=== PATIENT | male | born 2000 | race Two or more races ===

== ENCOUNTER 2025-02-01 17:30 | Emergency (ER) | payer BC, MEDICAID, SELFPAY ==
[2025-02-01 18:26] VITALS: BP 133/75; PULSE 52; RESP 18; TEMP 36.8; O2SAT 99; BMI 28.8
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
[2025-02-01] MEDS: LIDOCAINE HCL 1% 20 ML VIAL INFL (19:25)
--- NOTE | 2025-02-01 20:45 | XR_ITS ---
Examination: Hand, left 2 views Technique: AP lateral left hand 2 views Date and time: February 01, 2025, 2043 hours INDICATIONS: Injury to the hand today, hand pain. FINDINGS: 1 mm chip fracture off the volar base of the distal phalanx fifth digit Fracture line also through the base of the distal phalanx fifth digit No dislocation IMPRESSION: Fractures of base distal phalanx fifth digit
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
[2025-02-01] MEDS: BACITRACIN OINT 1 GM PACKET TOP (21:28)
[2025-02-01] MEDS: IBUPROFEN TAB 600 MG TABLET PO (21:29)
== END 2025-02-01 21:42 | disposition home or self-care (01) ==
PROVIDERS: Emergency Provider Emergency Medicine
DX: S62.639A Displaced fracture of distal phalanx of unspecified finger, initial encounter for closed fracture (principal); S01.112A Laceration without foreign body of left eyelid and periocular area, initial encounter; W05.1XXA Fall from non-moving nonmotorized scooter, initial encounter
CPT/HCPCS: 12014; 70450; 73120; 99283; J3490; A9270